=== PATIENT | female | born 1985 | race Caucasian/White ===

== ENCOUNTER → 2017-12-02 | Outpatient (CLI) | payer OTHER, MEDICAID | END | disposition home or self-care (01) | LOC: PETCFH 10:54 | PROVIDERS: ATTEND Nurse Practitioner Family | DX: K30 Functional dyspepsia (principal); K91.5 Postcholecystectomy syndrome; K58.0 Irritable bowel syndrome with diarrhea; K59.00 Constipation, unspecified; F25.9 Schizoaffective disorder, unspecified | CPT/HCPCS: 78264; A9541 ==

== ENCOUNTER 2018-02-10 18:40 | Emergency (ER) | payer OTHER, MEDICAID ==
[~2018-02-10] VITALS: Ht 162.6 cm; Wt 92.0 kg
[2018-02-10 18:46] VITALS: BP 138/93
[2018-02-10 19:39] LABS: BASOPHILS # (AUTO) 0.03 x10^3/uL (0-0.1); BASOPHILS % (AUTO) 0 % (0-1); EOSINOPHILS # (AUTO) 0.19 x10^3/uL (0-0.4); EOSINOPHILS % (AUTO) 2 % (1-7); LYMPHOCYTES # (AUTO) 4.52 x10^3/uL (1-3.4); LYMPHOCYTES % (AUTO) 36 % (22-44); MD NO; MEAN CORPUSCULAR HEMOGLOBIN 33.3 pg (27.0-34.8); MEAN CORPUSCULAR HGB CONC 34.2 g/dL (32.4-35.8); MEAN CORPUSCULAR VOLUME 97.3 fL (80-100); MEAN PLATELET VOLUME 8.8 fL (7.4-10.4); MONOCYTES # (AUTO) 0.92 x10^3/uL (0.2-0.8); MONOCYTES % (AUTO) 7 % (2-9); NEUTROPHILS # (AUTO) 6.83 x10^3/uL (1.8-6.8); NEUTROPHILS % (AUTO) 55 % (42-75); PLATELET COUNT 322 x10^3/uL (130-400); RED BLOOD COUNT 4.74 x10^6/uL (3.82-5.3); RED CELL DISTRIBUTION WIDTH 13.4 % (9.6-15.2)
[2018-02-10 19:42] LABS: CULTURE INDICATED? NO; MICROSCOPIC AUTO
[2018-02-10 19:49] LABS: ALANINE AMINOTRANSFERASE 21 U/L (12-78); ALBUMIN 3.7 g/dL (3.4-5.0); ANION GAP 6 mmol/L (5-15); CALCIUM 9.3 mg/dL (8.5-10.1); CHLORIDE 105 mmol/L (98-107)
[2018-02-10 19:54] LABS: ALKALINE PHOSPHATASE 75 U/L (45-117); BILIRUBIN,TOTAL 0.2 mg/dL (0.2-1.0); CREATININE 0.72 mg/dL (0.55-1.02); TOTAL PROTEIN 7.5 g/dL (6.4-8.2)
== END 2018-02-10 20:32 | disposition home or self-care (01) ==
LOC: ED 20:26
DX: M54.5 Low back pain (principal); Z00.01 Encounter for general adult medical examination with abnormal findings; E11.9 Type 2 diabetes mellitus without complications; F20.9 Schizophrenia, unspecified
CPT/HCPCS: 36415; 80053; 81001; 84702; 85025; 99284

== ENCOUNTER 2018-03-06 22:50 | Emergency (ER) | payer OTHER, MEDICAID ==
[~2018-03-06] VITALS: Ht 162.6 cm; Wt 100.3 kg
[2018-03-06] MEDS ORDERED: HALO50AM4 INJ (23:15)
[2018-03-06] MEDS ORDERED: PALI156D INJ (23:15)
[2018-03-06] MEDS ORDERED: COLE1TAB2 PO (23:19)
[2018-03-06] MEDS ORDERED: EXEN2VIA INJ (23:19)
[2018-03-06] MEDS ORDERED: SODIUM CHLORIDE FLUSH 10ML SYR IVF ONE (23:30)
[2018-03-06] MEDS ORDERED: SODIUM CHLORIDE 0.9% 1,000ML IVBOLUS ONE (23:30)
[2018-03-06] MEDS ORDERED: PROMETHAZINE 25 MG/ML, 1ML IM ONE (23:30)
[2018-03-06] MEDS ORDERED: FAMOTIDINE 20 MG/2 ML IVP ONE (23:30)
[2018-03-06] MEDS ORDERED: FAMOTIDINE 20 MG/2 ML ONE (23:34)
[2018-03-06] MEDS ORDERED: MORPHINE SULFATE 4 MG/ML, 1ML ONE (23:34)
[2018-03-06] MEDS ORDERED: PROMETHAZINE 25 MG/ML, 1ML ONE (23:35)
[2018-03-06] MEDS: MORPHINE SULFATE 4 MG/ML, 1ML IVPush PRN (23:40)
[2018-03-06 23:42] LABS: HCG UR SG 1.002 (1.003-1.030)
[2018-03-06 23:49] LABS: MD NO; MEAN PLATELET VOLUME 8.7 fL (7.4-10.4)
[2018-03-06 23:54] LABS: BASOPHILS # (AUTO) 0.13 x10^3/uL (0-0.1); BASOPHILS % (AUTO) 1 % (0-1); EOSINOPHILS % (AUTO) 2 % (1-7); LYMPHOCYTES # (AUTO) 3.59 x10^3/uL (1-3.4); LYMPHOCYTES % (AUTO) 28 % (22-44); MEAN CORPUSCULAR HEMOGLOBIN 33.3 pg (27.0-34.8); MEAN CORPUSCULAR HGB CONC 34.2 g/dL (32.4-35.8); MEAN CORPUSCULAR VOLUME 97.4 fL (80-100); MONOCYTES # (AUTO) 0.75 x10^3/uL (0.2-0.8); MONOCYTES % (AUTO) 6 % (2-9); NEUTROPHILS # (AUTO) 7.98 x10^3/uL (1.8-6.8); NEUTROPHILS % (AUTO) 63 % (42-75); PLATELET COUNT 388 x10^3/uL (130-400); RED BLOOD COUNT 4.68 x10^6/uL (3.82-5.3); RED CELL DISTRIBUTION WIDTH 12.9 % (9.6-15.2)
[2018-03-07 00:01] LABS: ALANINE AMINOTRANSFERASE 30 U/L (12-78); ALBUMIN 3.7 g/dL (3.4-5.0); ANION GAP 9 mmol/L (5-15); CALCIUM 9.7 mg/dL (8.5-10.1); CHLORIDE 102 mmol/L (98-107)
[2018-03-07 00:03] LABS: ALKALINE PHOSPHATASE 94 U/L (45-117); BILIRUBIN,TOTAL 0.4 mg/dL (0.2-1.0); CREATININE 0.71 mg/dL (0.55-1.02); TOTAL PROTEIN 7.3 g/dL (6.4-8.2)
[2018-03-07 00:49] LABS: MICROSCOPIC NOT IND
[2018-03-07 00:51] LABS: CULTURE INDICATED? NO
[2018-03-07] MEDS ORDERED: MORPHINE SULFATE 4 MG/ML, 1ML ONE (01:43)
[2018-03-07 01:45] VITALS: BP 110/81
[2018-03-07] MEDS: MORPHINE SULFATE 4 MG/ML, 1ML IVPush PRN (01:46)
== END 2018-03-07 02:19 | disposition home or self-care (01) ==
LOC: ED 23:38
DX: K85.00 Idiopathic acute pancreatitis without necrosis or infection (principal); R11.2 Nausea with vomiting, unspecified; E11.9 Type 2 diabetes mellitus without complications; Z90.49 Acquired absence of other specified parts of digestive tract
CPT/HCPCS: 36415; 80053; 81003; 81025; 83690; 85025; 96361; 96372; 96374; 96375; 96376; 99285; J2550; J7030; S0028

== ENCOUNTER 2018-03-08 17:38 | Emergency (ER) | payer OTHER, MEDICAID ==
[~2018-03-08] VITALS: Ht 162.6 cm; Wt 101.0 kg
[~2018-03-08 17:38] MED LIST: COLE1TAB2 PO; EXEN2VIA INJ; HALO50AM4 INJ; PALI156D INJ
[2018-03-08] MEDS ORDERED: SODIUM CHLORIDE FLUSH 10ML SYR IVF ONE (18:00)
[2018-03-08 18:03] LABS: MEAN CORPUSCULAR HEMOGLOBIN 33.6 pg (27.0-34.8); MEAN CORPUSCULAR HGB CONC 34.4 g/dL (32.4-35.8); MEAN CORPUSCULAR VOLUME 97.7 fL (80-100); MEAN PLATELET VOLUME 8.3 fL (7.4-10.4); PLATELET COUNT 385 x10^3/uL (130-400); RED CELL DISTRIBUTION WIDTH 13.3 % (9.6-15.2)
[2018-03-08 18:15] LABS: ALANINE AMINOTRANSFERASE 26 U/L (12-78); ALBUMIN 3.8 g/dL (3.4-5.0); ANION GAP 6 mmol/L (5-15); CALCIUM 9.1 mg/dL (8.5-10.1); CHLORIDE 105 mmol/L (98-107)
[2018-03-08 18:17] LABS: ALKALINE PHOSPHATASE 90 U/L (45-117); BILIRUBIN,TOTAL 0.3 mg/dL (0.2-1.0); TOTAL PROTEIN 7.5 g/dL (6.4-8.2)
[2018-03-08 18:25] LABS: BASOPHILS % (AUTO) 1 % (0-1); EOSINOPHILS # (AUTO) 0.27 x10^3/uL (0-0.4); EOSINOPHILS % (AUTO) 2 % (1-7); LYMPHOCYTES # (AUTO) 5.77 x10^3/uL (1-3.4); LYMPHOCYTES % (AUTO) 40 % (22-44); MD SCAN; MONOCYTES # (AUTO) 1.03 x10^3/uL (0.2-0.8); MONOCYTES % (AUTO) 7 % (2-9); NEUTROPHILS % (AUTO) 50 % (42-75)
[2018-03-08] MEDS ORDERED: METOCLOPRAMIDE 5 MG/ML, 2ML ONE (18:46)
[2018-03-08] MEDS ORDERED: HYDROmorphone 2 MG/ML, 1ML ONE (18:47)
[2018-03-08] MEDS ORDERED: DIPHENHYDRAMINE 50 MG/ML, 1ML ONE (18:47)
[2018-03-08] MEDS ORDERED: METOCLOPRAMIDE 5 MG/ML, 2ML IVPush ONE (19:00)
[2018-03-08] MEDS ORDERED: HYDROmorphone 1 MG/ML, 1ML IV ONE (19:00)
[2018-03-08] MEDS ORDERED: SODIUM CHLORIDE 0.9% 1,000ML IVBOLUS ONE (19:00)
[2018-03-08 20:00] VITALS: BP 124/87
== END 2018-03-08 20:40 | disposition home or self-care (01) ==
LOC: ED 17:50
DX: K85.00 Idiopathic acute pancreatitis without necrosis or infection (principal); E11.9 Type 2 diabetes mellitus without complications; Z90.49 Acquired absence of other specified parts of digestive tract
CPT/HCPCS: 36415; 80053; 83690; 85025; 96374; 96375; 99284; J1170; J2765; J7030

== ENCOUNTER → 2018-05-19 | Outpatient (CLI) | payer MEDICARE, MEDICAID | END | disposition home or self-care (01) | LOC: CFH 06:43 | PROVIDERS: ATTEND Nurse Practitioner Family | DX: M51.17 Intervertebral disc disorders with radiculopathy, lumbosacral region (principal); M25.78 Osteophyte, vertebrae; M48.061 Spinal stenosis, lumbar region without neurogenic claudication | CPT/HCPCS: 72120; 72148 ==

== ENCOUNTER 2019-03-08 10:56 | Emergency (ER) | payer MEDICAID, MEDICARE ==
[~2019-03-08] VITALS: Ht 162.6 cm; Wt 113.0 kg
--- NOTE | 2019-03-08 11:20 | NUR ---
THIS IS A 33YO FEMALE THAT COMES IN W/ C/O "HEART BEATING FAST AND HARD." PT REPORTS SHE HAD AND EKG THIS AM AT HER MD OFFICE AND WAS SENT HERE BECAUSE IT WAS ABNORMAL. PT IS SPEAKING IN FULL SENTENCES AND IS A/O X'S 4. PT IS CONNECTED TO ALL MONITORING AT THIS TIME. EVE HUYNH
--- NOTE | 2019-03-08 11:26 | NUR ---
MD AT BEDSIDE TO ASSESS PT
[2019-03-08 11:28] VITALS: BP 111/70
[2019-03-08 11:47] LABS: BASOPHILS # (AUTO) 0.06 x10^3/uL (0-0.1); BASOPHILS % (AUTO) 1 % (0-1); EOSINOPHILS % (AUTO) 1 % (1-7); LYMPHOCYTES # (AUTO) 2.81 x10^3/uL (1-3.4); LYMPHOCYTES % (AUTO) 24 % (22-44); MD NO; MEAN CORPUSCULAR HEMOGLOBIN 31.7 pg (27.0-34.8); MEAN CORPUSCULAR HGB CONC 33.5 g/dL (32.4-35.8); MEAN CORPUSCULAR VOLUME 94.7 fL (80-100); MEAN PLATELET VOLUME 8.1 fL (7.4-10.4); MONOCYTES # (AUTO) 0.82 x10^3/uL (0.2-0.8); MONOCYTES % (AUTO) 7 % (2-9); NEUTROPHILS # (AUTO) 7.71 x10^3/uL (1.8-6.8); NEUTROPHILS % (AUTO) 67 % (42-75); PLATELET COUNT 297 x10^3/uL (130-400); RED BLOOD COUNT 5.68 x10^6/uL (3.82-5.3); RED CELL DISTRIBUTION WIDTH 15.3 % (9.6-15.2)
[2019-03-08 11:58] LABS: ALANINE AMINOTRANSFERASE 12 U/L (12-78); ANION GAP 7 mmol/L (5-15); CALCIUM 9.7 mg/dL (8.5-10.1); CHLORIDE 102 mmol/L (98-107); CREATININE 0.78 mg/dL (0.55-1.02)
[2019-03-08 12:03] LABS: ALKALINE PHOSPHATASE 116 U/L (45-117); BILIRUBIN,TOTAL 0.3 mg/dL (0.2-1.0); TOTAL PROTEIN 7.4 g/dL (6.4-8.2); TROPONIN I < 0.015 ng/mL (0.000-0.045)
--- NOTE | 2019-03-08 12:14 | NUR ---
ALL RESULTS BACK AT THIS TIME. CHART UP FOR RECHECK AWAITING FURTHER ORDERS
== END 2019-03-08 12:51 | disposition home or self-care (01) ==
LOC: ED 12:34
DX: R79.89 Other specified abnormal findings of blood chemistry (principal); R00.2 Palpitations; Z90.49 Acquired absence of other specified parts of digestive tract; E11.9 Type 2 diabetes mellitus without complications
CPT/HCPCS: 36415; 71045; 80053; 83880; 84484; 85025; 93005; 99284

== ENCOUNTER → 2019-05-12 | Outpatient (CLI) | payer MEDICARE, MEDICAID | END | disposition home or self-care (01) | LOC: RAD 08:42 | DX: K85.90 Acute pancreatitis without necrosis or infection, unspecified (principal); F25.9 Schizoaffective disorder, unspecified; R11.2 Nausea with vomiting, unspecified; Z88.2 Allergy status to sulfonamides; Z88.5 Allergy status to narcotic agent; Z88.8 Allergy status to other drugs, medicaments and biological substances | CPT/HCPCS: 74181 ==

== ENCOUNTER 2019-06-29 19:14 | Emergency (ER) | payer MEDICARE, MEDICAID ==
[~2019-06-29] VITALS: Ht 162.6 cm; Wt 121.4 kg
[2019-06-29 19:25] VITALS: BP 176/94
--- NOTE | 2019-06-29 19:30 | NUR ---
BINGO MANAGER: PT PROVIDED WITH URINE CUP
--- NOTE | 2019-06-29 19:37 | NUR ---
CONTACT CENTER SPECIALIST: UA PROVIDED BY PT. LABELED AND SENT TO LAB
[2019-06-29 19:51] LABS: HCG UR SG 1.022 (1.003-1.030); MICROSCOPIC NOT IND
[2019-06-29] MEDS ORDERED: LIDOCAINE-MPF 1%, 5ML ONE (19:54)
[2019-06-29 19:56] LABS: CULTURE INDICATED? NO
[2019-06-29] MEDS ORDERED: KETOROLAC 30 MG/1 ML ONE (21:18)
[2019-06-29] MEDS ORDERED: METHOCARBAMOL 750 MG TABLET ONE (21:18)
[2019-06-29] MEDS ORDERED: METHOCARBAMOL 750 MG TABLET PO ONE (21:30)
[2019-06-29] MEDS ORDERED: KETOROLAC 30 MG/1 ML IM ONE (21:30)
== END 2019-06-29 21:51 | disposition home or self-care (01) ==
LOC: ED 21:45
DX: S39.012A Strain of muscle, fascia and tendon of lower back, initial encounter (principal); F17.210 Nicotine dependence, cigarettes, uncomplicated; X58.XXXA Exposure to other specified factors, initial encounter; Y93.89 Activity, other specified; Y92.89 Other specified places as the place of occurrence of the external cause; Y99.8 Other external cause status
CPT/HCPCS: 81003; 81025; 96372; 99283; J1885

== ENCOUNTER → 2019-12-20 | Outpatient (CLI) | payer MEDICARE, MEDICAID ==
[~2019-12-20] MED LIST changes: +DOXY100C15 PO; +FURO40TA6 PO; +PRED20TA PO; +SPIR25TA PO
== END | disposition home or self-care (01) ==
LOC: CVU 13:23
PROVIDERS: ATTEND Internal Medicine Cardiovascular Disease
DX: I11.9 Hypertensive heart disease without heart failure (principal); R60.9 Edema, unspecified; E11.9 Type 2 diabetes mellitus without complications
CPT/HCPCS: 93306

== ENCOUNTER 2020-05-21 18:47 | Emergency (ER) | payer MEDICAID, MEDICARE ==
[~2020-05-21] VITALS: Ht 165.1 cm; Wt 137.0 kg
[2020-05-21] MEDS ORDERED: ALBUTEROL/IPRATROPIUM 2.5MG/0.5MG, 3 ML NPPB ONE (19:00)
--- NOTE | 2020-05-21 19:04 | NUR ---
report from [facility]
[2020-05-21] MEDS ORDERED: insulin (19:17)
[2020-05-21 19:20] LABS: MEAN CORPUSCULAR HEMOGLOBIN 29.9 pg (27.0-34.8); MEAN CORPUSCULAR HGB CONC 32.8 g/dL (32.4-35.8); MEAN PLATELET VOLUME 8.9 fL (7.4-10.4); PLATELET COUNT 163 x10^3/uL (130-400); RED BLOOD COUNT 6.73 x10^6/uL (3.82-5.3); RED CELL DISTRIBUTION WIDTH 23.8 % (9.6-15.2)
[2020-05-21] MEDS ORDERED: insulin pump (19:21)
[2020-05-21] MEDS ORDERED: PALI410S IM (19:21)
[2020-05-21] MEDS ORDERED: PROP10TA16 PO (19:21)
[2020-05-21] MEDS ORDERED: trintellix PO (19:22)
[2020-05-21 19:29] LABS: ALBUMIN 3.4 g/dL (3.4-5.0); ANION GAP 9 mmol/L (5-15); CALCIUM 9.6 mg/dL (8.5-10.1); CHLORIDE 97 mmol/L (98-107)
[2020-05-21 19:32] LABS: ALANINE AMINOTRANSFERASE 27 U/L (12-78); ALKALINE PHOSPHATASE 108 U/L (45-117); BILIRUBIN,TOTAL 0.3 mg/dL (0.2-1.0); CREATININE 0.79 mg/dL (0.55-1.02); TOTAL PROTEIN 7.1 g/dL (6.4-8.2)
[2020-05-21] MEDS ORDERED: NICOTINE 21 MG/24 HR PATCH.TD24 ONE (19:38)
[2020-05-21] MEDS ORDERED: ALBUTEROL/IPRATROPIUM 2.5MG/0.5MG, 3 ML ONE (19:38)
--- NOTE | 2020-05-21 19:46 | NUR ---
pt tolerating high flow NC well. breathing treatment provided along with a nicotine patch per pt request
--- NOTE | 2020-05-21 19:47 | NUR ---
pt states at home her pulse ox typically reads between 88-90% pt wears 5L NC during the day and a CPAP at 10L at night time.
[2020-05-21] MEDS ORDERED: NICOTINE 21 MG/24 HR PATCH.TD24 TD ONE (20:00)
[2020-05-21 20:26] LABS: MD YES
[2020-05-21 20:29] LABS: BANDS%(MANUAL) 10 % (0-7); BASOS#(MANUAL) 0.08 x10^3/uL (0-0.1); BASOS% (MANUAL) 1 % (0-1); LYMPH#(MANUAL) 1.04 x10^3/uL (1-3.4); LYMPHS% (MANUAL) 13 % (22-44); MONOS#(MANUAL) 1.04 x10^3/uL (0.3-2.7); MONOS% (MANUAL) 13 % (2-9); SEG#(MANUAL) 5.04 x10^3/uL (1.8-6.8); SEGS% (MANUAL) 63 % (42-75)
[2020-05-21] MEDS ORDERED: FUROSEMIDE 40 MG/4 ML IV ONE (20:30)
[2020-05-21] MEDS ORDERED: MAALOX/HYOSCYAMINE/LIDOCAINE 45 ML BTL PO ONE (20:30)
[2020-05-21] MEDS ORDERED: FUROSEMIDE 40 MG/4 ML ONE (20:31)
[2020-05-21] MEDS ORDERED: MAALOX/HYOSCYAMINE/LIDOCAINE 45 ML BTL ONE (20:31)
[2020-05-21 20:32] LABS: POLYCHROMASIA 1+
[2020-05-21 20:33] LABS: SPHEROCYTES 1+
[2020-05-21 20:36] LABS: <PLATELET ESTIMATE> ADEQUATE; <PLT MORPHOLOGY> NORMAL PLT MORPH; HYPOCHROMIA 1+; MICROCYTOSIS 1+
[2020-05-21 21:20] LABS: TROPONIN I < 0.015 ng/mL (0.000-0.045)
--- NOTE | 2020-05-21 21:27 | NUR ---
purewick in place, draining clear, yellow urine.
[2020-05-21] MEDS ORDERED: COLESTIPOL 1 GM TABLET PO SCH (22:00)
[2020-05-21] MEDS ORDERED: POLYETHYLENE GLYCOL 17 GM PACKET PO PRN (22:00)
[2020-05-21] MEDS ORDERED: ONDANSETRON ODT 4 MG PO PRN (22:00)
[2020-05-21] MEDS ORDERED: PALIPERIDONE PALMITATE IM SCH (22:00)
[2020-05-21] MEDS ORDERED: BISACODYL 10 MG SUPP PR PRN (22:00)
[2020-05-21] MEDS ORDERED: HEPARIN 5,000 UNITS/ML, 1ML SQ SCH (22:00)
[2020-05-21] MEDS ORDERED: HALOPERIDOL DECANOATE 50 MG/ML IM SCH (22:00)
[2020-05-21] MEDS ORDERED: INSULIN LISPRO 100 UNITS/ML, PEN SQ-INSULIN SCH (22:00)
[2020-05-21] MEDS ORDERED: SODIUM CHLORIDE FLUSH 10ML SYR IVF SCH (22:00)
--- NOTE | 2020-05-21 22:02 | NUR ---
I HAD A CONVERSATION WITH DR ROBERT, DR ARMENDARIZ AND JOÃO (LOST CHARGE CARD CLERK) AND EVERYONE IS COMFORTABLE WITH THE PT O2 SATURATIONS TO BE IN THE 80S BECUASE THAT IS BASELINE FOR THE PATIENT AND SHE IS MENTATING WELL.
--- NOTE | 2020-05-21 22:21 | NUR ---
PT PROVIDED WATER WITH ICE PER PT REQUEST.
--- NOTE | 2020-05-21 22:51 | NUR ---
PT STATES SHE WANTS TO LEAVE AMA. I HAD AN EXTENSIVE DISCUSSION WITH THE PT AND SHE UNDERSTANDS THAT LEAVING AMA COULD RESULT IN HER . PRESTON MOYERN IN TO DISCUSS WITH PATIENT. HE DISCUSSED THE RISKS WITH PT ALSO AND SHE VERBALIZED UNDERSTANDING TO HIM ALSO THAT LEAVING AMA COULD RESULT IN HER . PT AGREES TO SIGN AMA PAPERWORK. PT MENTATING APPROPRAITELY. A+OX4. SHE STATES THAT HER BOYFRIEND IS GOING TO COME PICK HER UP.
--- NOTE | 2020-05-21 23:07 | NUR ---
AMA PAPERWORK SIGNED AND ADDED TO PAPER CHART. PT PROVIDED WITH A COPY. PT PLACED IN WHEELCHAIR AND TAKEN TO THE LOBBY FOR HER BOYFRIEND TO COME PICK HER UP.
--- NOTE | 2020-05-21 23:08 | NUR ---
PT INFORMED THAT IF SHE CHANGES HER MIND AND/OR WHEN SHE FEELS WORSE SHE IS ALWAYS WELCOME TO COME BACK TO THE ER.
[2020-05-21 23:09] VITALS: BP 116/86
[2020-05-22] MEDS ORDERED: FUROSEMIDE 40 MG/4 ML IV SCH (07:30)
[2020-05-22] MEDS ORDERED: SPIRONOLACTONE 25 MG TABLET PO SCH (09:00)
[2020-05-22] MEDS ORDERED: SENNA/DOCUSATE TABLET PO SCH (09:00)
[2020-05-22] MEDS ORDERED: PROPRANOLOL 10 MG TABLET PO SCH (09:00)
[2020-06-17] MEDS ORDERED: MAGN70TA2 PO (08:51)
[2020-06-17] MEDS ORDERED: ERGO500017 PO (08:51)
== END 2020-05-21 23:12 | disposition left against medical advice (07) ==
LOC: ED 21:39 → EDIP 21:56 → UNDOADMIN 21:56 → ED 23:12
DX: J96.21 Acute and chronic respiratory failure with hypoxia (principal); E87.2 Acidosis; R00.0 Tachycardia, unspecified; R06.02 Shortness of breath; Z72.9 Problem related to lifestyle, unspecified; F17.210 Nicotine dependence, cigarettes, uncomplicated; I10 Essential (primary) hypertension; E11.9 Type 2 diabetes mellitus without complications; Z90.89 Acquired absence of other organs; Z90.49 Acquired absence of other specified parts of digestive tract
CPT/HCPCS: 36415; 36600; 71045; 80053; 82803; 83036; 83605; 83690; 83880; 84145; 84484; 85025; 87040; 93005; 94640; 96374; 99285; 99406; J1940